=== PATIENT | male | born 1955 | race Caucasian/White ===

== ENCOUNTER 2017-10-13 12:04 | Emergency (ER) | payer BC ==
[2017-10-13] MEDS ORDERED: Acetaminophen 325 MG TAB ONE (12:35)
--- NOTE | 2017-10-13 13:34 | RAD ---
CHEST 2 VIEWS: HISTORY: Cough and fever. COMPARISON: 04/23/14. FINDINGS: The cardiac silhouette and pulmonary vasculature are unremarkable. Mediastinum is midline. Minimal linear atelectasis projects over the left lung base. There is no confluent airspace consolidation, p neumothorax, or pleural fluid apparent. IMPRESSION: No active cardiopulmonary abnormalities are demonstrated. POS: [facility]
== END 2017-10-13 13:35 | disposition home or self-care (01) ==
LOC: SCSER 12:04
DX: J10.1 Influenza due to other identified influenza virus with other respiratory manifestations (principal)
CPT/HCPCS: 71046